=== PATIENT | male | born 1955 | race Caucasian/White ===

== ENCOUNTER 2024-08-30 18:28 | Emergency (ER) | payer MEDICAID ==
[~2024-08-30] VITALS: Ht 182.9 cm; Wt 82.2 kg
[2024-08-30] MEDS ORDERED: iohexol 350MG/ML 100ml bottle IV ONE (19:22)
[2024-08-30 20:08] LABS: ALBUMIN 3.3 G/DL (3.4-5.0); ANION GAP 4 (8-16); BLOOD UREA NITROGEN 15 MG/DL (7-18); BUN/CREATININE RATIO 12.6 (10.0-20.0); CALCIUM 8.7 MG/DL (8.5-10.1); CHLORIDE 106 MMOL/L (99-107); CREATININE 1.19 MG/DL (0.60-1.10); GLUCOSE 88 MG/DL (70-104); POTASSIUM 3.8 MMOL/L (3.5-5.1); SODIUM 139 MMOL/L (135-145); TOTAL CARBON DIOXIDE 28.8 MMOL/L (24-32); eCRCL 66 ML/MIN; eGFR 61 ML/MIN
[2024-08-30 20:09] LABS: APTT 33 SECONDS (22-32); BASOPHILS % (AUTO) 0.4 % (0-1); EOSINOPHILS # (AUTO) 0.2 X10'3 (0-0.9); EOSINOPHILS % (AUTO) 1.9 % (0-6); HEMATOCRIT 34.1 % (42.0-52.0); HEMOGLOBIN 11.4 g/dl (14.0-17.9); LYMPHOCYTES # (AUTO) 1.2 X10'3 (1.1-4.8); LYMPHOCYTES % (AUTO) 13.9 % (21-51); MEAN CORPUSCULAR HEMOGLOBIN 27.5 PG (27.0-31.0); MEAN CORPUSCULAR HGB CONC 33.5 g/dL (33.0-36.5); MEAN CORPUSCULAR VOLUME 82.2 FL (78-98); MEAN PLATELET VOLUME 7.5 FL (7.4-10.4); MONOCYTES # (AUTO) 0.6 X10'3 (0-0.9); MONOCYTES % (AUTO) 6.9 % (2-12); NEUTROPHILS # (AUTO) 6.8 X10'3 (1.8-7.7); NEUTROPHILS % (AUTO) 76.9 % (42-75); PLATELET COUNT 351 X10'3 (140-440); PROTHROMBIN TIME 10.5 SECONDS (9.0-12.0); RED BLOOD COUNT 4.15 X10'6 (4.70-6.10); RED CELL DISTRIBUTION WIDTH 14.9 % (11.5-14.5); WHITE BLOOD COUNT 8.9 X10'3 (4.5-11.0)
[2024-08-30 20:40] LABS: BILIRUBIN,URINE NEGATIVE (Neg); CLARITY,URINE CLEAR (Clear); COLOR,URINE YELLOW (Yellow); GLUCOSE, URINE NEGATIVE (Neg); KETONES,URINE NEGATIVE (Neg); LEUKOCYTE ESTERASE ,URINE NEGATIVE (Neg); NITRITES, URINE NEGATIVE (Neg); OCCULT BLOOD,URINE NEGATIVE (Neg); PH,URINE 6.5 (4.8-8.0); PROTEIN,URINE NEGATIVE (Neg); UROBILINOGEN,URINE 0.2 E.U/dL (0.2-1.0)
[2024-08-30 20:41] LABS: UA COLLECTION TYPE NON-SPECIFIED
[2024-08-30 21:10] LABS: URINE AMPHETAMINE SCREEN POSITIVE (Neg); URINE BARBITUATE SCREEN NEGATIVE (Neg); URINE BENZODIAZEPINES SCREEN NEGATIVE (Neg); URINE CANNABINOID SCREEN NEGATIVE (Neg); URINE COCAINE SCREEN NEGATIVE (Neg); URINE METHADONE SCREEN NEGATIVE (Neg); URINE OPIATE SCREEN NEGATIVE (Neg); URINE PHENCYCLIDINE SCREEN NEGATIVE (Neg)
[2024-08-30 22:26] VITALS: TEMP 97.9
[2024-08-31] MEDS: aspirin 325mg tablet PO ONE (00:29)
[2024-08-31] MEDS: clopidogrel 300mg tablet PO ONE (00:29)
[2024-08-31] MEDS ORDERED: ASPI81TA52 PO (00:36)
[2024-08-31] MEDS ORDERED: CLOP-32 PO (00:36)
[2024-08-31 00:47] VITALS: BP 181/99; PULSE 89; RESP 18; O2SAT 98
== END 2024-08-31 00:50 | disposition home or self-care (01) ==
LOC: ER 18:30
DX: I65.02 Occlusion and stenosis of left vertebral artery (principal); F17.200 Nicotine dependence, unspecified, uncomplicated; Z88.5 Allergy status to narcotic agent
CPT/HCPCS: 36415; 70450; 70496; 70498; 71045; 80048; 80305; 81003; 85025; 85610; 85730; 86870; 86885; 86900; 86901; 86902; 86905; 93005; 99285; Q9967